=== PATIENT | male | born 1965 | race Caucasian/White ===

== ENCOUNTER 2022-01-16 08:18 | Outpatient (CLI) | payer OTHER, SELFPAY ==
[2022-01-16 14:28] LABS: Chloride* 105 mmol/L (96-114); Potassium* 5.3 mmol/L (3.6-5.1); Sodium* 139 mmol/L (135-149)
[2022-01-16 14:31] LABS: Blood Urea Nitrogen* 31 mg/dL (7-30); Calcium* 9.4 mg/dL (8.4-10.6); Carbon Dioxide* 25 mmol/L (20-32); Estimated Glomerular Filt Rate 89 ml/min; Glucose* 101 mg/dL (60-115)
== END 2022-01-16 08:19 | disposition home or self-care (01) ==
LOC: FBOREF 08:20
PROVIDERS: PCP Family Medicine; Visit Provider Family Medicine
DX: I10 Essential (primary) hypertension (principal)
CPT/HCPCS: 80048

== ENCOUNTER 2023-01-22 08:16 | Outpatient (CLI) | payer OTHER, SELFPAY | END 2023-01-22 08:17 | disposition home or self-care (01) | PROVIDERS: PCP Family Medicine; Visit Provider Family Medicine | DX: I10 Essential (primary) hypertension (principal); E66.01 Morbid (severe) obesity due to excess calories; Z12.5 Encounter for screening for malignant neoplasm of prostate; Z13.6 Encounter for screening for cardiovascular disorders | CPT/HCPCS: 80048; 80061; 84153 ==

== ENCOUNTER 2024-02-11 07:50 | Outpatient (CLI) | payer OTHER, SELFPAY | END 2024-02-11 07:51 | disposition home or self-care (01) | PROVIDERS: PCP Family Medicine; Visit Provider Family Medicine | DX: I10 Essential (primary) hypertension (principal); E66.01 Morbid (severe) obesity due to excess calories; Z12.5 Encounter for screening for malignant neoplasm of prostate; Z13.6 Encounter for screening for cardiovascular disorders | CPT/HCPCS: 80048; 80061; G0103 ==